=== PATIENT | female | born 1940 | race African-American/Black ===

== ENCOUNTER 2016-07-03 18:46 | Emergency (ER) | payer OTHER ==
[2016-07-03 18:51] VITALS: BP 134/64; PULSE 93; TEMP 98.3; BMI 24.7
[2016-07-03] MEDS ORDERED: ONDANSETRON 4 MG/2 ML VIAL IVPB ONE (19:26)
[2016-07-03] MEDS ORDERED: KETOROLAC TROMETHAMINE 30 MG/1 ML VIAL IVPUSH ONE (19:26)
[2016-07-03] MEDS ORDERED: SODIUM CHLORIDE 500 ML IV STA ×2 (19:26→22:09)
[2016-07-03] MEDS ORDERED: KETOROLAC TROMETHAMINE 30 MG/1 ML VIAL ONE (19:42)
[2016-07-03] MEDS ORDERED: ONDANSETRON 4 MG/2 ML VIAL ONE (19:42)
[2016-07-03 20:01] LABS: BASOPHIL 0.3 % (0-2.0); EOSINOPHIL 0.3 % (0-4.5); MCH 24.4 pg (25.7-33.7); MCHC 31.9 g/dl (32.0-36.0); MEAN CELL VOLUME 76.6 fl (80-96); MEAN PLT VOLUME 8.7 fl (7.5-11.1); NEUTROPHILS 85.4 % (42.8-82.8); PLATELET COUNT 248 K/MM3 (134-434); RDW 14.8 % (11.6-15.6)
--- NOTE | 2016-07-03 20:16 | PDOC ---
History of Present Illness - General Chief Complaint: Pain, Acute Stated Complaint: RT SIDE FLANK PAIN Time Seen by Provider: 07/03/16 19:21 History Source: Patient Exam Limitations: No Limitations - History of Present Illness Travel History: No Initial Comments: 07/03/16 20:09 76yo Female patient w/ PmHx: HTN, HLD, DM presents to ED c/o right flank pain radiating to right lower abd. Patient states symptoms began yesterday, and has progressed today. Associated Nausea and frequent urinating. Patient denies fever , diarrhea, or vomiting. Last meal 3pm today. Last BM noon today. Denies any other complaints at this time. Timing/Duration: reports: getting worse, changing over time Quality: reports: moderate Abdominal Pain Onset Location: reports: flank Pain Radiation: reports: groin Activities at Onset: reports: none Treatment Prior to Arrive: worse with: analgesics, antacids, cold pack, heat, laxative, enema, other Aggravating Factors: worse with: None, Defecation, Eating, Emotional upset, Exertion, [place], Movement, Voiding, Change in position Alleviating Factors: worse with: None, Belching, Shallow Breathing, Defecation, Eating, Holding Breath, Passing Gas, Change in Position, Rest, Voiding, Vomiting Past History - Travel Traveled outside of the country in the last 30 days: No Close contact w/someone who was outside of country & ill: No - Past Medical History Allergies/Adverse Reactions: Allergies Allergy/AdvReac Type Severity Reaction Status Date / Time Penicillins Allergy Verified 07/03/16 18:51 Home Medications: Ambulatory Orders Metformin HCl [Metformin HCl ER] 1,000 mg PO BID 01/13/14 Atorvastatin Ca [Lipitor] 20 mg PO HS 07/03/16 Glyburide [Diabeta -] 2.5 mg PO DAILY 07/03/16 Losartan Potassium 25 mg PO DAILY 07/03/16 Tamsulosin HCl [Flomax] 0.4 mg PO DAILY #7 cap.er.24h 07/03/16 Tramadol HCl 50 mg PO Q8H PRN #12 tablet MDD 4 tabs 07/04/16 Anemia: No Asthma: No Cancer: No Cardiac Disorders: No CVA: No COPD: No CHF: No Dementia: No Diabetes: Yes GI Disorders: No Disorders: No HTN: Yes Hypercholesterolemia: Yes Liver Disease: No Seizures: No Thyroid Disease: No - Surgical History Abdominal Surgery: No Appendectomy: No Cardiac Surgery: No Cholecystectomy: No Lung Surgery: No Neurologic Surgery: No Orthopedic Surgery: No - Psycho/Social/Smoking Cessation Hx Suicidal Ideation: No Smoking Status: No Smoking History: Never smoked Have you smoked in the past 12 months: No Number of Cigarettes Smoked Daily: 0 Hx Alcohol Use: No Drug/Substance Use Hx: No Substance Use Type: None Hx Substance Use Treatment: No Abd/GI Specific PMHX - Complaint Specific PMHX Colitis: No Diverticulitis: No Gall Bladder Disease: No GERD: No Hepatitis: No Irritable Bowel Synd (IBS): No Pancreatitis: No GI Ulcer Disease: No Review of Systems - Review of Systems Able to Perform ROS?: Yes Is the patient limited [place] proficient: No Constitutional: No: Chills, Fever Respiratory: No: Cough, Shortness of Breath, Stridor, Wheezing Cardiac (ROS): No: Chest Pain, Palpitations, Syncope, Chest Tightness ABD/GI: Yes: Nausea. No: Diarrhea, Poor Appetite, Poor Fluid Intake, Vomiting, Abdominal cramping : Yes: Frequency, Flank Pain. No: Dysuria, Pain, Urgency Musculoskeletal: Yes: Back Pain Integumentary: No: Erythema, Rash All Other Systems: Reviewed and Negative *Physical Exam - Vital Signs Last Vital Signs Temp Pulse Resp BP Pulse Ox 98.3 F 93 H 20 134/64 97 07/03/16 18:47 07/03/16 18:47 07/03/16 18:47 07/03/16 18:47 07/03/16 18:47 - Physical Exam General Appearance: Yes: Nourished, Appropriately Dressed. No: Apparent Distress, Mild Distress, Moderate Distress, Severe Distress Respiratory/Chest: positive: Lungs Clear, Normal Breath Sounds. negative: Respiratory Distress, Accessory Muscle Use, Labored Respiration, Rapid RR Cardiovascular: positive: Regular Rhythm, Regular Rate. negative: Edema, JVD, Murmur Gastrointestinal/Abdominal: positive: Normal Bowel Sounds, Soft, Distended. negative: Tender, Guarding, Rebound, Tenderness Musculoskeletal: positive: Normal Inspection, CVA Tenderness, CVA Tenderness (R) . negative: CVA Tenderness (L), Decreased Range of Motion, Vertebral Tenderness Extremity: positive: Normal Inspection, Normal Range of Motion Integumentary: positive: Normal Color, Dry, Warm Neurologic: positive: competitive shopper II-XII NML intact, Fully Oriented, Alert, Normal Mood/ Affect, Normal Response, Motor Strength 08/12 ED Treatment Course - LABORATORY CBC & Chemistry Diagram: 07/03/16 19:50 07/03/16 19:50 - ADDITIONAL ORDERS Additional order review: 07/03/16 19:50 RBC 4.98 MCV 76.6 L MCHC 31.9 L RDW 14.8 MPV 8.7 Neutrophils % 85.4 H Lymphocytes % 6.2 L Monocytes % 7.8 Eosinophils % 0.3 Basophils % 0.3 - Medications Given in the ED: ED Medications Discontinued Medications Generic Name Dose Route Start Last Admin Trade Name Freq PRN Reason Stop Dose Admin Ketorolac Tromethamine 30 mg 07/03/16 19:26 07/03/16 20:00 Toradol Injection - IVPUSH 07/03/16 19:27 30 mg ONCE ONE Administration Ondansetron HCl 4 mg 07/03/16 19:26 07/03/16 20:01 Zofran Injection IVPB 07/03/16 19:27 4 mg ONCE ONE Administration *DC/Admit/Observation/Transfer Diagnosis at time of Disposition: Renal colic on right side - Discharge Dispostion Disposition: HOME Condition at time of disposition: Good Admit: No - Prescriptions Prescriptions: Tamsulosin HCl [Flomax] 0.4 mg PO DAILY #7 cap.er.24h Tramadol HCl 50 mg PO Q8H PRN #12 tablet MDD 4 tabs PRN Reason: Severe Pain - Referrals Referrals: Soren Rick MD [Primary Care Provider] - Freddy Grant MD [Staff Physician] - - Patient Instructions Printed Discharge Instructions: Kidney Stones -- Adult Additional Instructions: FOLLOW UP WITH DR. GRANT (UROLOGY) THIS WEEK. CALL TO SCHEDULE APPOINTMENT. TAKE MEDICATIONS PRESCRIBED. DO NOT DRIVE, DRINK ALCOHOL, OR OPERATE HEAVY MACHINERY WHILE TAKING TRAMADOL. RETURN IF YOUR SYMPTOMS WORSEN, OR ANY CONCERNS FOR FURTHER EVALUATION. ALSO, FOLLOW UP WITH DR. RICK DISCUSSED. Print Language: FAROESE
[2016-07-03 20:21] LABS: ALBUMIN 3.8 g/dl (3.4-5.0); ANION GAP 10 (8-16); BILIRUBIN,TOTAL 1.1 mg/dL (0.2-1.0); CALCIUM 9.4 mg/dL (8.5-10.1); CO2 26 mmol/L (21-32); SGOT/AST 10 U/L (15-37); SGPT/ALT 17 U/L (12-78); TOT PROT 7.5 g/dl (6.4-8.2)
[2016-07-03 20:24] LABS: ALK PHOS 100 U/L (45-117); TROPONIN I < 0.02 ng/ml (0.00-0.05)
[2016-07-03 20:29] LABS: GLUCOSE,RANDOM 407 mg/dL (74-106)
[2016-07-03 22:31] LABS: URINE APPEARANCE SLCLOUDY; URINE BILIRUBIN NEGATIVE (NEGATIVE); URINE BLOOD 3+ (NEGATIVE); URINE COLOR STRAW; URINE GLUCOSE (UA) 3+ (NEGATIVE); URINE KETONE NEGATIVE (NEGATIVE); URINE LEUK ESTERASE 3+ (NEGATIVE); URINE NITRITE POSITIVE (NEGATIVE); URINE PROTEIN 1+ (NEGATIVE); URINE UROBILINOGEN NEGATIVE E.U./dl (0.2-1.0)
[2016-07-03 22:34] LABS: URINE BACTERIA MODERATE /hpf (NONE SEEN); URINE RBC 38 /hpf (0-3); URINE WBC 798 /hpf (3-5)
[2016-07-03] MEDS ORDERED: TAMSULOSIN HCL 0.4 MG CAP.ER.24H (FP) PO ONE (23:37)
[2016-07-03] MEDS ORDERED: traMADol HCL 50 MG TABLET PO ONE (23:37)
[2016-07-03] MEDS ORDERED: INSULIN REGULAR HUMAN 100 UNITS/ML *VIAL SQ ONE (23:37)
[2016-07-04] MEDS ORDERED: traMADol HCL 50 MG TABLET ONE (00:05)
[2016-07-04] MEDS ORDERED: TAMSULOSIN HCL 0.4 MG CAP.ER.24H (FP) ONE (00:06)
[2016-07-04] MEDS ORDERED: INSULIN REGULAR HUMAN 100 UNITS/ML *VIAL ONE (00:07)
== END 2016-07-04 00:17 | disposition home or self-care (01) ==
LOC: JER 18:46
PROC: 3E0337Z Introduction of Electrolytic and Water Balance Substance into Peripheral Vein, Percutaneous Approach (ICD-10-PCS; principal; 2016-07-03)
PROC: 3E0333Z Introduction of Anti-inflammatory into Peripheral Vein, Percutaneous Approach (ICD-10-PCS; 2016-07-03)
PROC: 3E033GC Introduction of Other Therapeutic Substance into Peripheral Vein, Percutaneous Approach (ICD-10-PCS; 2016-07-03)
PROC: 3E013VG Introduction of Insulin into Subcutaneous Tissue, Percutaneous Approach (ICD-10-PCS; 2016-07-03)
DX: N23 Unspecified renal colic (principal); I10 Essential (primary) hypertension; E11.9 Type 2 diabetes mellitus without complications; Z79.84 Long term (current) use of oral hypoglycemic drugs; E78.00 Pure hypercholesterolemia, unspecified
CPT/HCPCS: 36415; 74176-TC; 80053; 81003; 81015; 82550; 84484; 85025; 99283-25

== ENCOUNTER 2019-01-18 20:07 | Emergency (ER) | payer OTHER ==
[2019-01-18 20:22] VITALS: BP 159/72; PULSE 107; TEMP 98.2; BMI 25.6
[2019-01-18] MEDS ORDERED: METHOCARBAMOL 500 MG TABLET PO ONE (20:49)
[2019-01-18] MEDS ORDERED: KETOROLAC TROMETHAMINE 60 MG/2 ML VIAL IM ONE (20:49)
[2019-01-18] MEDS ORDERED: KETOROLAC TROMETHAMINE 30 MG/1 ML VIAL IM ONE (20:53)
[2019-01-18] MEDS ORDERED: KETOROLAC TROMETHAMINE 30 MG/1 ML VIAL ONE (20:56)
[2019-01-18] MEDS ORDERED: METHOCARBAMOL 500 MG TABLET ONE (20:57)
--- NOTE | 2019-01-18 21:03 | PDOC ---
History of Present Illness - General Chief Complaint: Head/Neck problem Stated Complaint: NECK PAIN Time Seen by Provider: 01/18/19 20:32 History Source: Patient Exam Limitations: Clinical Condition - History of Present Illness Initial Comments: 01/18/19 20:59 Patient with no significant past medical history presented with complaint of worsening pain to posterior left side of neck since yesterday with stiff neck. Patient reported increased pain when she rotates her neck to the left. Denies any trauma or injury to her neck. Denies nausea, vomiting, dizziness, shortness of breath, blurry vision or change in vision. Denies any other symptoms Is this a multiple visit Asthma Patient?: No Past History - Past Medical History Allergies/Adverse Reactions: Allergies Allergy/AdvReac Type Severity Reaction Status Date / Time Penicillins Allergy Verified 07/03/16 18:51 Home Medications: Ambulatory Orders metFORMIN HCL [Metformin ER Osmotic] 1,000 mg PO BID 01/13/14 Atorvastatin Ca [Lipitor] 20 mg PO HS 07/03/16 Glyburide [Diabeta -] 2.5 mg PO DAILY 07/03/16 Losartan Potassium 25 mg PO DAILY 07/03/16 Tamsulosin HCl [Flomax] 0.4 mg PO DAILY #7 cap.er.24h 07/03/16 Tramadol HCl 50 mg PO Q8H PRN #12 tablet MDD 4 tabs 07/04/16 Methocarbamol [Robaxin -] 500 mg PO BID PRN #14 tablet 01/18/19 Naproxen 500 mg PO BID PRN #20 tablet 01/18/19 Anemia: No Asthma: No Cancer: No Cardiac Disorders: No CVA: No COPD: No CHF: No Dementia: No Diabetes: Yes GI Disorders: No Disorders: No HTN: Yes Hypercholesterolemia: Yes Liver Disease: No Seizures: No Thyroid Disease: No - Surgical History Abdominal Surgery: No Appendectomy: No Cardiac Surgery: No Cholecystectomy: No Lung Surgery: No Neurologic Surgery: No Orthopedic Surgery: No - Immunization History Immunization Up to Date: Yes - Psycho Social/Smoking Cessation Hx Smoking Status: No Smoking History: Never smoked Have you smoked in the past 12 months: No Number of Cigarettes Smoked Daily: 0 Hx Alcohol Use: No Drug/Substance Use Hx: No Substance Use Type: None Hx Substance Use Treatment: No *Physical Exam - Vital Signs Last Vital Signs Temp Pulse Resp BP Pulse Ox 98.2 F 107 H 17 159/72 98 01/18/19 20:18 01/18/19 20:18 01/18/19 20:18 01/18/19 20:18 01/18/19 20:18 - Physical Exam Comments: 01/18/19 21:02 GENERAL: Well developed, well nourished. Awake and alert in moderate acute distress. CARDIOVASCULAR: Regular rate and rhythm. No murmurs, rubs, or gallops. PULMONARY: No evidence of respiratory distress. Lungs clear to auscultation bilaterally. No wheezing, rales or rhonchi. ABDOMINAL: Soft. Non-tender. Non-distended. No rebound or guarding. No organomegaly. Normoactive bowel sounds MUSCULOSKELETAL : moderate tenderness to left paravertebral muscle of cervical spinal C2-C6 with spasm of left-sided neck. No midline tenderness. Increased pain to the left SCM muscle with rotation of the neck to the left. No radiculopathy. SKIN: Warm and dry. Normal capillary refill. No rashes. NEUROLOGICAL: Alert, awake, appropriate. No motor deficits in the lower extremities. Gait is normal without ataxia. PSYCHIATRIC: Cooperative. Good eye contact. Appropriate mood and affect. General Appearance: Yes: Nourished, Appropriately Dressed, Apparent Distress ED Treatment Course - RADIOLOGY Radiology Studies Ordered: Category Date Time Status SPINE-CERVICAL [RAD] Stat Radiology 01/18/19 20:49 Ordered Medical Decision Making - Medical Decision Making 01/18/19 21:00 Patient with no significant past medical history presented with complaint of worsening pain to posterior left side of neck since yesterday with stiff neck. Patient reported increased pain when she rotates her neck to the left. Denies any trauma or injury to her neck. Denies nausea, vomiting, dizziness, shortness of breath, blurry vision or change in vision. Denies any other symptoms Exam significant for moderate tenderness to left paravertebral muscle of cervical spinal C2-C6 with spasm of left-sided neck. No midline tenderness. Increased pain to the left SCM muscle with rotation of the neck to the left. No radiculopathy. Symptoms likely torticollis. Toradol 30 mg IM and Robaxin 5 mg p.o. ordered for pain and spasm. X-ray of cervical spine ordered to rule out acute spine pathology. Treat based on x-ray results 01/18/19 21:40 x-rays of neck shows spasm but no acute pathology. Patient stable for discharge on naproxen prn for pain and robaxin prn for spasm with neurospine f/u Discharge - Discharge Information Problems reviewed: Yes Clinical Impression/Diagnosis: Torticollis, acute Condition: Stable Disposition: HOME - Admission No - Additional Discharge Information Prescriptions: Methocarbamol [Robaxin -] 500 mg PO BID PRN #14 tablet PRN Reason: neck spasm Naproxen 500 mg PO BID PRN #20 tablet PRN Reason: neck pain - Follow up/Referral Referrals: Librado Jhaveri MD, [facility] [Staff Physician] - - Patient Discharge Instructions Patient Printed Discharge Instructions: DI for Torticollis Additional Instructions: X-ray of the neck shows no acute fracture or dislocation. pain is likely caused by neck spasm. Take prescribed medication as needed for pain and spasm. Apply hot compress to neck 2-3 times a day as needed for pain. 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
[2019-01-18] MEDS ORDERED: NAPROXEN 500 MG TABLET (FP) PO ONE (21:31)
[2019-01-18] MEDS ORDERED: NAPROXEN 500 MG TABLET (FP) ONE (21:35)
== END 2019-01-18 21:41 | disposition home or self-care (01) ==
LOC: JERFT 20:07
PROC: 3E0233Z Introduction of Anti-inflammatory into Muscle, Percutaneous Approach (ICD-10-PCS; principal; 2019-01-18)
DX: M43.6 Torticollis (principal); I10 Essential (primary) hypertension; E11.9 Type 2 diabetes mellitus without complications; Z79.84 Long term (current) use of oral hypoglycemic drugs; E78.00 Pure hypercholesterolemia, unspecified; Z88.0 Allergy status to penicillin
CPT/HCPCS: 72050-TC-FY; 99282-25